=== PATIENT | female | born 1935 | race Caucasian/White ===

== ENCOUNTER → 2023-06-18 13:31 | Outpatient (REF) | payer OTHER, SELFPAY | LOC: DHCBC MAIN 13:31 | PROVIDERS: ATTENDING PHYSICIAN Internal Medicine Cardiovascular Disease; FAMILY PHYSICIAN Family Medicine | DX: R07.89 Other chest pain (principal); I34.1 Nonrheumatic mitral (valve) prolapse | CPT/HCPCS: 93306 ==

== ENCOUNTER → 2023-06-19 10:26 | Outpatient (REF) | payer OTHER, SELFPAY | LOC: DHCBC/DCA 10:26 | PROVIDERS: ATTENDING PHYSICIAN Internal Medicine Cardiovascular Disease; FAMILY PHYSICIAN Family Medicine | DX: R07.89 Other chest pain (principal); I34.1 Nonrheumatic mitral (valve) prolapse | CPT/HCPCS: 78452; 93017; A9500; J2785 ==

== ENCOUNTER → 2024-03-11 11:33 | Outpatient (REF) | payer OTHER, SELFPAY | LOC: HWRAD 11:33 | PROVIDERS: ATTENDING PHYSICIAN Student in an Organized Health Care Education/Training Program; FAMILY PHYSICIAN Family Medicine | DX: M25.561 Pain in right knee (principal) | CPT/HCPCS: 73700 ==

== ENCOUNTER → 2024-04-24 12:03 | Outpatient (REF) | payer OTHER, SELFPAY | LOC: PAVMRI 12:03 | PROVIDERS: ATTENDING PHYSICIAN Student in an Organized Health Care Education/Training Program; FAMILY PHYSICIAN Family Medicine | DX: M25.562 Pain in left knee (principal) | CPT/HCPCS: 73721 ==